=== PATIENT | female | born 1950 ===

== ENCOUNTER 2017-10-24 10:19 | Outpatient (CLI) | payer OTHER | END 2017-10-24 10:43 | disposition home or self-care (01) | LOC: LAB 10:19 | DX: G25.0 Essential tremor (principal); C50.919 Malignant neoplasm of unspecified site of unspecified female breast; I10 Essential (primary) hypertension; M54.12 Radiculopathy, cervical region; E53.8 Deficiency of other specified B group vitamins; E55.9 Vitamin D deficiency, unspecified; R63.5 Abnormal weight gain ==

== ENCOUNTER 2017-10-26 09:46 | Outpatient (CLI) | payer OTHER | END 2017-10-26 17:00 | disposition home or self-care (01) | LOC: MRI 09:46 | DX: G25.0 Essential tremor (principal); C50.919 Malignant neoplasm of unspecified site of unspecified female breast; M54.12 Radiculopathy, cervical region; M79.609 Pain in unspecified limb | CPT/HCPCS: 70553; 72141; A9579 ==

== ENCOUNTER → 2018-10-08 | Emergency (ER) | payer OTHER ==
[~2018-10-08] VITALS: Ht 157.5 cm; Wt 78.9 kg
[~2018-10-08] MED LIST: LABETALOL HCL100 MG; NEXIUM40 M1
== END | disposition home or self-care (01) ==
LOC: ER 12:53
DX: L03.011 Cellulitis of right finger (principal)

== ENCOUNTER → 2019-10-31 | Outpatient (CLI) | payer OTHER | END | disposition home or self-care (01) | LOC: MAMO-SONO 10:45 → SONOGRAMA 11:23 | DX: M25.522 Pain in left elbow (principal) ==